=== PATIENT | female | born 1990 | race Caucasian/White ===

== ENCOUNTER 2018-10-25 20:34 | Emergency (ER) | payer BC ==
[2018-10-25] MEDS ORDERED: Ketorolac 30 MG/ML SDV IVPUSH ONE ×2 (21:07→21:53)
[2018-10-25] MEDS ORDERED: Sodium Chloride 0.9% 10 ML Syringe FLUSH PRN (21:07)
[2018-10-25] MEDS ORDERED: Metoclopramide 10 MG/2 ML SDV IVPUSH ONE ×2 (21:07→21:53)
[2018-10-25] MEDS ORDERED: diphenhydrAMINE 50 MG/ML SDV IVPUSH ONE ×2 (21:07→21:53)
[2018-10-25] MEDS ORDERED: Meclizine 12.5 MG Tab PO ONE (21:15)
[2018-10-25] MEDS ORDERED: Sodium Chloride 0.9% 1,000 ML IV SCH (21:15)
--- NOTE | 2018-10-25 21:50 | EDM.PDOC ---
ED HPI GENERAL MEDICAL PROBLEM - General Chief Complaint: Headache Stated Complaint: DIZZY AND STOMACH PAIN Time Seen by Provider: 10/25/18 20:52 Source of Information: Reports: Patient, RN Notes Reviewed History Limitations: Reports: No Limitations - History of Present Illness INITIAL COMMENTS - FREE TEXT/NARRATIVE: Patient is a 27-year-old female who presents to the ED for the evaluation of dizziness, headache. The patient states that around 8 PM last night she does developed a headache with some slight dizziness. She states that the headache is not bothersome at this time but the dizziness has worsened since then, the patient states she is nauseated and having some stomach pain as well. She notes a history of migraines. She did not note any recent head injury or loss of consciousness. The patient states that she took some hydrocodone and Zofran at 4:30 PM for this but is unsure of the dosage at this time. The patient states that any type of movement at all aggravates this dizziness. And she gets nauseous with the dizziness. She states she's never had this type of dizziness before ever. She denies any fever/chills, cough, other upper respiratory symptoms, vomiting, diarrhea. She states that the dizziness is like world spinning dizziness around her when she moves. Abdomen Pain Score (Numeric/FACES): 3 - Related Data Allergies Allergy/AdvReac Type Severity Reaction Status Date / Time Penicillins Allergy Airway Verified 10/25/18 20:46 Tightness Sulfa (Sulfonamide Allergy Airway Verified 10/25/18 20:46 Antibiotics) Tightness Home Meds: Home Meds Cholecalciferol (Vitamin D3) [Vitamin D3] 1 tab PO WEEKLY 10/25/18 [History] Hydrocodone/Acetaminophen [[place] 5-325 Tablet] 1 tab PO Q4HR PRN 10/25/18 [ History] Levothyroxine 75 mcg PO ACBREAKFAST 10/25/18 [History] Naproxen 500 mg PO DAILY PRN 10/25/18 [History] Ondansetron HCl [Zofran] 4 mg PO Q8H PRN 10/25/18 [History] diphenhydrAMINE HCl [Benadryl] 25 mg PO DAILY PRN 10/25/18 [History] Past Medical History HEENT History: Reports: Impaired Vision Respiratory History: Reports: Other (See Below) Other Respiratory History: pleuresy GARMENT PRESSER History: Reports: , Other (See Below) Other GARMENT PRESSER History: IUD, PCOS Musculoskeletal History: Reports: Other (See Below) Other Musculoskeletal History: fx's to bilateral wrist, tore R achillies tendon Neurological History: Reports: Concussion, Migraines, Other (See Below) Other Neuro History: cluster headaches Endocrine/Metabolic History: Reports: Hypothyroidism - Infectious Disease History Infectious Disease History: Reports: Chicken Pox - Past Surgical History Female Surgical History: Reports: Section, Tubal Ligation Musculoskeletal Surgical History: Reports: Arthroscopic Knee, Other (See Below) Other Musculoskeletal Surgeries/Procedures:: R knee surgery Social & Family History - Family History Family Medical History: Noncontributory - Tobacco Use Smoking Status *Q: Never Smoker - Caffeine Use Caffeine Use: Reports: Coffee, Energy Drinks - Recreational Drug Use Recreational Drug Use: No ED ROS GENERAL - Review of Systems Review Of Systems: See Below Constitutional: Denies: Fever, Chills, Weakness HEENT: Denies: Rhinitis, Sinus Problem Respiratory: Reports: No Symptoms Cardiovascular: Reports: No Symptoms Endocrine: Reports: No Symptoms GI/Abdominal: Reports: No Symptoms : Reports: No Symptoms Musculoskeletal: Reports: No Symptoms Skin: Reports: No Symptoms Neurological: Reports: Dizziness, Headache. Denies: Confusion, Seizure, Syncope , Trouble Speaking, Difficulty Walking Psychiatric: Reports: No Symptoms Hematologic/Lymphatic: Reports: No Symptoms Immunologic: Reports: No Symptoms - Physical Exam Exam: See Below Exam Limited By: No Limitations General Appearance: Alert, WD/WN, No Apparent Distress Eye Exam: Right Eye: Nystagmus (3 tics of nystagmus to rightward gaze), Bilateral Eye: EOMI, Normal Inspection, PERRL Ears: Normal External Exam, Normal Canal, Normal TMs Nose: Normal Inspection Throat/Mouth: Normal Inspection, Normal Lips, Normal Teeth, Normal Oropharynx, Normal Voice, No Airway Compromise Head Exam: Atraumatic, Normocephalic Neck: Normal Inspection Respiratory/Chest: No Respiratory Distress, Lungs Clear, Normal Breath Sounds, No Accessory Muscle Use, Chest Non-Tender Cardiovascular: Normal Peripheral Pulses, Regular Rate, Rhythm, No Murmur GI/Abdominal: Normal Bowel Sounds, Soft, Non-Tender, No Distention, No Mass Neuro Exam (Abbreviated): Alert, Oriented, CN II-XII Intact, Normal Cognition, Normal Gait, Normal Reflexes, No Motor/Sensory Deficits Extremities: Normal Inspection, Normal Capillary Refill Psychiatric: Normal Affect, Normal Mood Skin Exam: Warm, Dry, Intact, Normal Color, No Rash Course - Vital Signs Last Recorded V/S: Last Vital Signs Temp 96.6 F 10/25/18 20:41 Pulse 73 10/25/18 20:41 Resp 18 10/25/18 20:41 BP 136/110 H 10/25/18 20:41 Pulse Ox 99 10/25/18 20:41 - Orders/Labs/Meds Orders: Active Orders 24 hr Category Date Time Status Peripheral IV Care [RC] . DIRECTED Care 10/25/18 21:07 Inactive Sodium Chloride 0.9% [Normal Saline] 1,000 ml Med 10/25/18 21:15 Active IV ASDIRECTED Medication Orders Sodium Chloride (Normal Saline) 1,000 mls @ 500 mls/hr IV ASDIRECTED MELISA Last Admin: 10/25/18 21:32 Dose: 500 mls/hr Meds: Medications Generic Name Dose Route Start Last Admin Trade Name Freq PRN Reason Stop Dose Admin Sodium Chloride 1,000 mls @ 500 mls/hr 10/25/18 21:15 10/25/18 21:32 Normal Saline IV 500 mls/hr ASDIRECTED MELISA Administration Discontinued Medications Generic Name Dose Route Start Last Admin Trade Name Freq PRN Reason Stop Dose Admin Diphenhydramine HCl 25 mg 10/25/18 21:07 Benadryl IVPUSH 10/25/18 21:08 ONETIME ONE Diphenhydramine HCl 25 mg 10/25/18 21:53 10/25/18 22:09 Benadryl IVPUSH 10/25/18 21:54 25 mg ONETIME ONE Administration Ketorolac Tromethamine 30 mg 10/25/18 21:07 Toradol IVPUSH 10/25/18 21:08 ONETIME ONE Ketorolac Tromethamine 30 mg 10/25/18 21:53 10/25/18 22:10 Toradol IVPUSH 10/25/18 21:54 30 mg ONETIME ONE Administration Meclizine HCl 25 mg 10/25/18 21:15 10/25/18 21:24 Antivert PO 10/25/18 21:16 25 mg ONETIME ONE Administration Metoclopramide HCl 10 mg 10/25/18 21:07 Reglan IVPUSH 10/25/18 21:08 ONETIME ONE Metoclopramide HCl 10 mg 10/25/18 21:53 10/25/18 22:07 Reglan IVPUSH 10/25/18 21:54 10 mg ONETIME ONE Administration Sodium Chloride 10 ml 10/25/18 21:07 Saline Flush FLUSH ASDIRECTED PRN Keep Vein Open - Re-Assessments/Exams Free Text/Narrative Re-Assessment/Exam: 10/25/18 21:20 Patient presents to the ED for evaluation of headache and dizziness. Her dizziness appears to be vertigo in nature. This is aggravated by changing positions. I did order 25 mg of meclizine for management of this. 10/25/18 21:54 Patient was reassessed at bedside and states that the dizziness hasn't improved much, and her headache has worsened at this time. I did order 30 mg IV Toradol , 10 mg IV Reglan, 25 mg IV Benadryl for management of her headache at this time. 10/25/18 22:42 Patient is reassessed at bedside and is sitting up at the edge of the bed and states that her headache and her dizziness have both subsided. She is ready to go home I will discharge her home with general instructions. Departure - Departure Time of Disposition: 22:43 Disposition: Home, Self-Care 01 Condition: Fair Clinical Impression: Migraine, Vertigo - Discharge Information *PRESCRIPTION DRUG MONITORING PROGRAM REVIEWED*: No *COPY OF PRESCRIPTION DRUG MONITORING REPORT IN PATIENT KYLIE: No Instructions: Migraine Headache, [id number], Vertigo, [id number] Referrals: Ana Muir PA-C [Primary Care Provider] - Forms: ED Department Discharge Additional Instructions: You have been evaluated in the ED tonight for your dizziness and headache. You have been given a combination of medications to correct both of these ailments. If you should develop increased dizziness again, you can get [id number] meclizine. This is available at any type of pharmacy it may be commonly called [facility] or [facility]. This will be near the [facility]. Please return to the ED if her symptoms change or worsen. - My Orders Last 24 Hours: My Active Orders 10/25/18 21:07 Peripheral IV Care [RC] . DIRECTED 10/25/18 21:15 Sodium Chloride 0.9% [Normal Saline] 1,000 ml IV ASDIRECTED - Assessment/Plan Last 24 Hours: My Active Orders 10/25/18 21:07 Peripheral IV Care [RC] . DIRECTED 10/25/18 21:15 Sodium Chloride 0.9% [Normal Saline] 1,000 ml IV ASDIRECTED
== END 2018-10-25 22:51 | disposition home or self-care (01) ==
LOC: JD.ED 20:34
DX: G43.909 Migraine, unspecified, not intractable, without status migrainosus (principal); R42 Dizziness and giddiness; E03.9 Hypothyroidism, unspecified; Z88.0 Allergy status to penicillin; Z88.2 Allergy status to sulfonamides; Z79.899 Other long term (current) drug therapy
CPT/HCPCS: 96361; 96374; 96375; 99283; A9270; J1200; J1885; J2765; J7040; 99284

== ENCOUNTER 2024-11-30 10:44 | Day surgery (SDC) | payer OTHER ==
[~2024-11-30 10:44] MED LIST: Sodium Chloride 0.9% 10 ML Syringe FLUSH PRN; Sodium Chloride 0.9% 10 ML Syringe FLUSH SCH
[2024-11-30] MEDS: Lactated Ringers 1,000 ML IV SCH (11:05)
[2024-11-30] MEDS ORDERED: Iopamidol 612 MG/ML 30 ML SDV ONE (11:20)
[2024-11-30] MEDS ORDERED: Sodium Chloride 0.9% 50 ML SDV ONE (11:21)
[2024-11-30] MEDS ORDERED: Midazolam 1 MG/ML 2 ML SDV ONE (11:34)
[2024-11-30] MEDS ORDERED: fentaNYL 250 MCG/5 ML SDV ONE (11:34)
[2024-11-30] MEDS ORDERED: propofoL 1,000 MG/100 ML 100 ML ONE (11:36)
[2024-11-30] MEDS ORDERED: Dexamethasone 4 MG/ML 5 ML MDV ONE (11:40)
[2024-11-30] MEDS ORDERED: Lidocaine 1% 5 ML VIAL ONE (11:40)
[2024-11-30] MEDS ORDERED: dexmedeTOMIDine HCl 200 MCG/2 ML SDV ONE (11:40)
[2024-11-30] MEDS ORDERED: Rocuronium 50 MG/5 ML Vial ONE (11:40)
[2024-11-30] MEDS ORDERED: Ondansetron 4 MG/2 ML SDV ONE (11:40)
[2024-11-30] MEDS ORDERED: ceFAZolin 2 GM Vial ONE (12:23)
[2024-11-30] MEDS ORDERED: Lactated Ringers 1,000 ML ONE (12:25)
[2024-11-30] MEDS ORDERED: HYDROmorphone 0.5 MG/0.5 ML Syringe ONE (12:36)
[2024-11-30] MEDS: Bupivacaine 0.5% 30 ML SDV ONE (12:40)
[2024-11-30] MEDS: EPINEPHrine 1 MG/ML SDV ONE (12:40)
[2024-11-30] MEDS ORDERED: Sugammadex Sodium 200 MG/2 ML VIAL IV ONE (12:57)
[2024-11-30] MEDS ORDERED: Ketorolac 30 MG/ML SDV ONE (12:57)
[2024-11-30] MEDS ORDERED: HYDROmorphone 0.5 MG/0.5 ML Syringe IVPUSH PRN (13:13)
[2024-11-30] MEDS ORDERED: droPERidol 2.5 MG/ML SDV IV PRN (13:13)
[2024-11-30] MEDS ORDERED: Acetaminophen Soln 650 MG/20.3 ML UD Cup PO ONE (13:30)
[2024-11-30] MEDS: fentaNYL 100 MCG/2 ML SDV IVPUSH PRN (13:30)
[2024-11-30] MEDS: Ondansetron 4 MG/2 ML SDV IVPUSH PRN (14:50)
[2024-11-30] MEDS: oxyCODONE 5 MG Tab PO PRN (14:56)
== END 2024-11-30 16:10 | disposition home or self-care (01) ==
LOC: JD.SDS 10:44
PROVIDERS: ATTEND Surgery
DX: K80.10 Calculus of gallbladder with chronic cholecystitis without obstruction (principal); K82.8 Other specified diseases of gallbladder; E03.9 Hypothyroidism, unspecified; Z79.890 Hormone replacement therapy; Z79.899 Other long term (current) drug therapy; Z88.0 Allergy status to penicillin; Z88.2 Allergy status to sulfonamides
CPT/HCPCS: 47562; A9270; J0171; J0665; J0690; J1100; J1885; J2003; J2250; J2405; J2704; J3010; J7120; 00790; J3490; Q9967